=== PATIENT | male | born 1990 | race African-American/Black ===

== ENCOUNTER 2016-10-25 13:21 | Emergency (ER) | payer OTHER, MEDICAID ==
[~2016-10-25] VITALS: Ht 170.2 cm; Wt 72.0 kg
[2016-10-25] MEDS ORDERED: KETOROLAC 60MG/2ML VIAL IM ONE (17:15)
[2016-10-25] MEDS ORDERED: METHOCARBAMOL 500MG TABLET PO ONE (17:15)
[2016-10-25 17:35] VITALS: BP 112/64
== END 2016-10-25 18:27 | disposition home or self-care (01) ==
LOC: EDSEX 13:34 → ER 13:34
DX: S16.1XXA Strain of muscle, fascia and tendon at neck level, initial encounter (principal); M54.5 Low back pain; V49.9XXA Car occupant (driver) (passenger) injured in unspecified traffic accident, initial encounter; Y93.89 Activity, other specified; Y92.89 Other specified places as the place of occurrence of the external cause; Y99.8 Other external cause status
CPT/HCPCS: 96372; 99283; J1885